=== PATIENT | male | born 1995 | race African-American/Black ===

== ENCOUNTER 2023-02-13 13:14 | Emergency (ER) | payer MEDICAID, OTHER ==
[~2023-02-13] VITALS: Ht 177.8 cm; Wt 96.6 kg
[2023-02-13 14:45] VITALS: BP 151/85; PULSE 79; RESP 16; TEMP 98.2; O2SAT 99
[2023-02-13] MEDS ORDERED: IBUPROFEN 600 MG TAB PO ONE (15:00)
[2023-02-13] MEDS ORDERED: IBUP1TAB5 PO (15:29)
== END 2023-02-13 15:29 | disposition home or self-care (01) ==
LOC: ER 13:14
DX: M26.622 Arthralgia of left temporomandibular joint (principal); K13.79 Other lesions of oral mucosa

== ENCOUNTER 2024-02-23 01:23 | Emergency (ER) | payer MEDICARE, MEDICAID ==
[~2024-02-23] VITALS: Ht 177.8 cm; Wt 76.0 kg
[~2024-02-23 01:23] MED LIST: IBUP1TAB5 PO
[2024-02-23] MEDS: LIDOCAINE 1% HCL (LOCAL ANESTH.) INJ 20ML MDV ID ONE (01:50)
[2024-02-23] MEDS ORDERED: CEPH500C PO (02:35)
[2024-02-23] MEDS ORDERED: IBU600T PO (02:35)
[2024-02-23] MEDS: CEPHALEXIN 250 MG CAP PO ONE (02:54)
[2024-02-23 03:00] VITALS: BP 146/85; PULSE 110; RESP 18; TEMP 100; O2SAT 98
== END 2024-02-23 03:05 | disposition home or self-care (01) ==
LOC: ER 01:23
DX: L02.412 Cutaneous abscess of left axilla (principal); L73.2 Hidradenitis suppurativa; Z79.899 Other long term (current) drug therapy
CPT/HCPCS: 10060; 99283; J2003

== ENCOUNTER 2024-03-01 13:49 | Emergency (ER) | payer MEDICARE, MEDICAID ==
[~2024-03-01 13:49] MED LIST changes: +CEPH500C PO; +IBU600T PO
== END 2024-03-01 14:42 | disposition left against medical advice (07) ==
LOC: ER 13:51
DX: Z48.00 Encounter for change or removal of nonsurgical wound dressing (principal); Z53.21 Procedure and treatment not carried out due to patient leaving prior to being seen by health care provider

== ENCOUNTER 2024-05-31 16:00 | Emergency (ER) | payer MEDICARE, MEDICAID ==
--- NOTE | 2024-05-31 16:20 | ED.PDOC ---
GI ASSESSMENT HPI Comments 29 Y M presents to the ED with CC of abdominal pain. Patient states, that he has been experiencing abdominal discomfort with certain foods x months. Patient relays, that he has believes he is allergic to certain types of food but has been unable to do the required testing. Patient denies fever, chills, body aches or N/V/D. Time Seen by MD: 16:13 Primary Care Provider: Unknown Reviewed Notes: Nurses Notes, Medications, Allergies Allergies: Coded Allergies: No Known Drug Allergy (Verified Allergy, Unknown, 02/13/23) Home Meds Active Scripts Ibuprofen Micronized (MOTRIN TABLET) 600 Mg Tb, 600 MG PO TID PRN, #40 TAB *Black box warning-NSAIDS can increase risk of [place] & hypertension, GI irritation, ulceration, bleed, perferation. Do not use post cardiac surgery. Use short duration/lowest effective dose. Prov:MIGUEL AVELAR MD 02/23/24 Cephalexin Monohydrate (Cephalexin) 500 Mg Cap, 500 MG PO Q6HR for 7 Days, #28 MG Prov:MIGUEL AVELAR MD 02/23/24 Ibuprofen Micronized (Ibuprofen) 600 Mg Tab, 600 MG PO Q6HPRN PRN for 5 Days, #20 TAB Prov:CARYL JARRELL NP 02/13/23 Information Source: Patient Mode of Arrival: Ambulatory Timing: Months Duration: Since onset Prehospital treatment: None Quality: Cramping Vomitus: None Severity: None Recent: None Recent Hx of: None Pain Location: Epigastric Modifying Factors: Food; Exertion, Position, Movement, Antacids, Lying still, Nothing Associated sign and symptoms: None Past Medical History PAST MEDICAL HISTORY: Denies Past Medical History (Other): BIPOLAR Surgical History: Denies all surgeries Surgical History (Other): LEFT JAW Family History Family History: Reviewed,noncontributory to illness Social History Smoker: Non-Smoker Alcohol: Denies ETOH Use Drugs: Denies Drug Use Lives In: Home Constitutional: denies: chills, diaphoresis, fatigue, fever, malaise, sweats, weakness, others EENTM: denies: blurred vision, double vision, ear bleeding, ear discharge, ear drainage, ear pain, ear ringing, eye pain, eye redness, hearing loss, mouth pain, mouth swelling, nasal discharge, nose bleeding, nose congestion, nose pain, photophobia, tearing, throat pain, throat swelling, voice changes, others Respiratory: denies: cough, hemoptysis, orthopnea, SOB at rest, shortness of breath, SOB with excertion, stridor, wheezing, others Cardiovascular: denies: chest pain, dizzy spells, diaphoresis, Dyspnea on exertion, edema, irregular heart beat, left arm pain, lightheadedness, palpitations, PND, syncope, others Gastrointestinal: reports: abdominal pain; denies: abdomen distended, blood streaked bowels, constipated, diarrhea, dysphagia, difficulty swallowing, hematemesis, melena, nausea, poor appetite, poor fluid intake, rectal bleeding, rectal pain, vomiting, others Genitourinary: denies: burning, dysuria, flank pain, frequency, hematuria, incontinence, penile discharge, penile sore, pain, testicle pain, testicle swelling, urgency, others Neurological: denies: dizziness, fainting, headache, left sided numbness, left sided weakness, numbness, paresthesia, pre-existing deficit, right sided numbness, right sided weakness, seizure, speech problems, tingling, tremors, weakness, others Musculoskeletal: denies: back pain, gout, joint pain, joint swelling, muscle pain, muscle stiffness, neck pain, others Integumetry: denies: bruises, change in color, change in hair/nails, dryness, laceration, lesions, lumps, rash, wounds, others Allergic/Immunocompromised: denies: Difficulty Healing, Frequent Infections, Hives, Itching, others Hematologic/Lymphatic: denies: anemia, blood clots, easy bleeding, easy bruising, swollen glands, others Endocrine: denies: excessive hunger, excessive sweating, excessive thirst, excessive urination, flushing, intolerance to cold, intolerance to heat, unexplained weight gain, unexplained weight loss, others Psychiatric: denies: anxiety, bipolar disorder, depression, hopeless, panic disorder, schizophrenia, sleepless, suicidal, others All Other Systems: Reviewed and Negative Physical Exam General Appearance: No Apparent Distress HEENT: Normal ENT Inspection, Pharynx Normal, TMs Normal Neck: Full Range of Motion, Non-Tender, Normal, Normal Inspection Respiratory: Chest Non-Tender, Lungs Clear, No Accessory Muscle Use, No Respiratory Distress, Normal Breath Sounds Cardiovascular: No Edema, No JVD, No Murmur, No Gallop, Normal Peripheral Pulses, Regular Rate/Rhythm Breast Exam: Deferred Gastrointestinal: No Organomegaly, Non Tender, No Pulsatile Mass, Normal Bowel Sounds, Soft Genitalia: Deferred Pelvic: Deferred Rectal: Deferred Extremities: No calf tenderness, Normal capillary refill, Normal inspection, Normal range of motion, Non-tender, No pedal edema Musculoskeletal : Apperance: Normal Neurologic: Alert, office clerk routine II-XII nml as Tested, No Motor Deficits, Normal Affect, Normal Mood, No Sensory Deficits Cerebellar Function: Normal Reflexes: Normal Skin: Dry, Normal Color, Warm Lymphatic: No Adenopathy Was a procedure done? Was a procedure done?: No GI differential Dx Differential Diagnosis: Gastritis/PUD, Gastroenteritis, Food Poisoning X-Ray, Labs, Meds, VS It seems that the patient was eloped from the department's Time of 1ST Reevaluation: 16:43 Reevaluation 1ST: Unchanged Patient Education/Counseling: Diagnosis, Treatment, Prognosis Family Education/Counseling: No Family Present Additional Information - I reviewed the following notes from patient's past medical encounters: 03/01/24 DX: WOUND CHECK - The following tests were ordered, and results were reviewed by me: LABS - I discussed treatments and results with medical personnel and: PATIENT Departure 1 Departure Time of Disposition: 17:09 Impression: Primary Impression: Abdominal pain of unknown etiology Disposition: 07 LEFT AWOL/ELOPED Condition: Fair Critical Care Note Critical Care Time?: No Stability Stability form required: No Heart Score Heart Score: Heart Score Response (Comments) Value History N/A 0 EKG N/A 0 Age N/A 0 Risk Factors N/A 0 Troponin N/A 0 Total 0 I personally scribed for WILL DOWNS MD ([email or web address]) on 05/31/24 at 16:20. Electronically submitted by Stacy Bernabe ([email or web address]). I personally scribed for WILL DOWNS MD ([email or web address]) on 05/31/24 at 16:56. Electronically submitted by Stacy Bernabe ([email or web address]). WILL DOWNS MD May 31, 2024 16:20
== END 2024-05-31 17:02 | disposition left against medical advice (07) ==
LOC: ER 16:00
DX: R10.13 Epigastric pain (principal); Z79.899 Other long term (current) drug therapy